=== PATIENT | female | born 1970 | race African-American/Black ===

== ENCOUNTER 2016-12-02 09:09 | Emergency (ER) | payer MEDICAID ==
[~2016-12-02] VITALS: Ht 170.2 cm; Wt 69.0 kg
[2016-12-02] MEDS ORDERED: LORAZEPAM 1MG TABLET PO ONE ×2 (10:15→11:00)
[2016-12-02 11:11] VITALS: BP 99/57
== END 2016-12-02 11:43 | disposition home or self-care (01) ==
LOC: ER 09:17
DX: F41.0 Panic disorder [episodic paroxysmal anxiety] (principal); F32.9 Major depressive disorder, single episode, unspecified; I10 Essential (primary) hypertension
CPT/HCPCS: 81025; 99284

== ENCOUNTER 2016-12-05 14:08 | Emergency (ER) | payer MEDICAID ==
[~2016-12-05] VITALS: Ht 170.2 cm; Wt 85.0 kg
[2016-12-05] MEDS ORDERED: LORAZEPAM 1MG TABLET PO ONE (19:00)
[2016-12-05 19:13] LABS: BASOPHILS % 0.4 % (0.0-2.0); LYMPHOCYTES % 17.6 % (20.0-50.0); MEAN CORPUSCULAR HEMOGLOBIN 29.3 pg (28.0-32.0); MEAN CORPUSCULAR VOLUME 85.7 fL (81.0-99.0); MEAN PLATELET VOLUME 7.2 fl (7.4-10.4); MONOCYTES % 6.2 % (2.0-8.0); NEUTROPHILS % 75.8 % (40.0-76.0); PLATELET 404 x1000/uL (130-400); RED BLOOD CELL COUNT 4.43 mill/uL (4.2-5.4); RED CELL DISTRIBUTION WIDTH 14.8 % (11.6-14.6)
[2016-12-05 19:17] LABS: CLARITY URINE CLEAR (CLEAR); COLOR URINE YELLOW (YELLOW); GLUCOSE URINE NEGATIVE (NEGATIVE); KETONES URINE NEGATIVE (NEGATIVE); LEUKOCYTE ESTERASE URINE TRACE (NEGATIVE); NITRITE URINE NEGATIVE (NEGATIVE); OCCULT BLOOD URINE NEGATIVE (NEGATIVE); PROTEIN URINE NEGATIVE (NEGATIVE); UROBILINOGEN URINE 0.2 E.U./dL (0.2-1.0)
[2016-12-05 19:19] LABS: CHLORIDE 100 mEq/L (98-107)
[2016-12-05 19:21] LABS: CARBON DIOXIDE 28 mEq/L (21-32)
[2016-12-05 19:24] LABS: ETHANOL BLOOD < 10 mg/dL
[2016-12-05 19:25] LABS: HCG SCREEN NEGATIVE
[2016-12-05 19:33] LABS: *AMPHETAMINES SCREEN URINE NEGATIVE (NEGATIVE); *BARBITURATES SCREEN URINE NEGATIVE (NEGATIVE); *BENZODIAZEPINES SCREEN URINE NEGATIVE (NEGATIVE); *COCAINE SCREEN URINE NEGATIVE (NEGATIVE); CANNABINOID URINE SCREEN NEGATIVE (NEGATIVE); METHADONE URINE SCREEN NEGATIVE (NEGATIVE); OPIATES URINE SCREEN NEGATIVE (NEGATIVE); PHENCYCLIDINE URINE SCREEN NEGATIVE (NEGATIVE)
[2016-12-06 12:04] VITALS: BP 121/69
== END 2016-12-06 12:54 | disposition home or self-care (01) ==
LOC: ER 14:16
DX: F41.9 Anxiety disorder, unspecified (principal); R45.851 Suicidal ideations; I10 Essential (primary) hypertension; F32.9 Major depressive disorder, single episode, unspecified; F20.9 Schizophrenia, unspecified
CPT/HCPCS: 36415; 80048; 80305; 80307; 80329; 81001; 84703; 85025; 99284; G0482; Z7610

== ENCOUNTER 2016-12-21 17:43 | Emergency (ER) | payer MEDICAID ==
[~2016-12-21] VITALS: Ht 172.7 cm; Wt 91.0 kg
[2016-12-21 18:33] VITALS: BP 102/65
== END 2016-12-21 21:32 | disposition left against medical advice (07) ==
LOC: ER 17:43
DX: F41.9 Anxiety disorder, unspecified (principal); Z53.21 Procedure and treatment not carried out due to patient leaving prior to being seen by health care provider

== ENCOUNTER 2016-12-22 11:42 | Emergency (ER) | payer MEDICAID ==
[~2016-12-22] VITALS: Ht 170.2 cm; Wt 96.0 kg
[2016-12-22] MEDS ORDERED: ACETAMINOPHEN 325MG TABLET PO ONE (12:15)
[2016-12-22 12:45] LABS: CLARITY URINE CLOUDY (CLEAR); COLOR URINE YELLOW (YELLOW); GLUCOSE URINE 3+ (NEGATIVE); KETONES URINE NEGATIVE (NEGATIVE); LEUKOCYTE ESTERASE URINE 1+ (NEGATIVE); NITRITE URINE NEGATIVE (NEGATIVE); OCCULT BLOOD URINE NEGATIVE (NEGATIVE); PH URINE 5.5 (4.5-8.0); PROTEIN URINE NEGATIVE (NEGATIVE); SPECIFIC GRAVITY URINE 1.022 (1.005-1.030); UROBILINOGEN URINE 0.2 E.U./dL (0.2-1.0)
[2016-12-22 12:50] LABS: PROTHROMBIN TIME 10.9 sec (9.4-11.6)
[2016-12-22 12:54] LABS: BASOPHILS % 0.3 % (0.0-2.0); HEMATOCRIT. 33.6 % (36.0-48.0); MEAN CORPUSCULAR HEMOGLOBIN 30.6 pg (28.0-32.0); MEAN CORPUSCULAR VOLUME 85.3 fL (81.0-99.0); MEAN PLATELET VOLUME 7.6 fl (7.4-10.4); MONOCYTES % 6.4 % (2.0-8.0); NEUTROPHILS % 75.3 % (40.0-76.0); PLATELET 346 x1000/uL (130-400); RED BLOOD CELL COUNT 3.93 mill/uL (4.2-5.4); RED CELL DISTRIBUTION WIDTH 14.3 % (11.6-14.6)
[2016-12-22 13:09] LABS: *AMPHETAMINES SCREEN URINE NEGATIVE (NEGATIVE); *BARBITURATES SCREEN URINE NEGATIVE (NEGATIVE); *BENZODIAZEPINES SCREEN URINE NEGATIVE (NEGATIVE); *COCAINE SCREEN URINE NEGATIVE (NEGATIVE); CANNABINOID URINE SCREEN NEGATIVE (NEGATIVE); METHADONE URINE SCREEN NEGATIVE (NEGATIVE); OPIATES URINE SCREEN NEGATIVE (NEGATIVE); PHENCYCLIDINE URINE SCREEN NEGATIVE (NEGATIVE)
[2016-12-22 13:11] LABS: CARBON DIOXIDE 27 mEq/L (21-32); CHLORIDE 102 mEq/L (98-107); TROPONIN I < 0.02 ng/mL (0.00-0.04)
[2016-12-22 13:51] LABS: HEPATITIS B SURFACE ANTIGEN NEGATIVE
[2016-12-22 14:19] LABS: HEPATITIS B CORE AB IGM NEGATIVE
[2016-12-22 14:21] LABS: HEPATITIS A AB IGM NEGATIVE (NEGATIVE)
[2016-12-22] MEDS ORDERED: SODIUM CHLORIDE 0.9% 1,000 ML IV ONE (15:00)
[2016-12-22] MEDS ORDERED: SULFAMETHOXAZOLE/TRIMETHOPRIM 800/160MG TABLET PO ONE (15:00)
[2016-12-22 17:31] VITALS: BP 110/68
== END 2016-12-22 17:54 | disposition home or self-care (01) ==
LOC: ER 11:43
DX: R06.02 Shortness of breath (principal); N39.0 Urinary tract infection, site not specified; F32.9 Major depressive disorder, single episode, unspecified; N17.0 Acute kidney failure with tubular necrosis; E10.21 Type 1 diabetes mellitus with diabetic nephropathy; E88.09 Other disorders of plasma-protein metabolism, not elsewhere classified; E10.65 Type 1 diabetes mellitus with hyperglycemia; E86.0 Dehydration; F41.9 Anxiety disorder, unspecified; R81 Glycosuria; I10 Essential (primary) hypertension; E03.9 Hypothyroidism, unspecified; F20.9 Schizophrenia, unspecified; Z79.4 Long term (current) use of insulin
CPT/HCPCS: 36415; 71010; 80053; 80305; 81001; 81025; 83036; 83880; 84484; 85025; 85610; 85651; 86705; 86709; 86803; 87086; 87340; 93005; 96360; 96361; 99285; J7030

== ENCOUNTER 2017-01-01 16:19 | Emergency (ER) | payer MEDICAID ==
[~2017-01-01] VITALS: Ht 180.3 cm; Wt 94.0 kg
[2017-01-01 19:45] VITALS: BP 105/57
== END 2017-01-01 20:08 | disposition home or self-care (01) ==
LOC: ER 16:37
DX: F41.9 Anxiety disorder, unspecified (principal); F32.9 Major depressive disorder, single episode, unspecified; E11.9 Type 2 diabetes mellitus without complications; E05.90 Thyrotoxicosis, unspecified without thyrotoxic crisis or storm
CPT/HCPCS: 81025; 99284; Z7610

== ENCOUNTER 2017-01-14 16:40 | Emergency (ER) | payer MEDICAID ==
[~2017-01-14] VITALS: Ht 162.6 cm; Wt 60.0 kg
[2017-01-14 16:42] VITALS: BP 105/68
== END 2017-01-14 17:51 | disposition left against medical advice (07) ==
LOC: ER 16:40
DX: Z53.21 Procedure and treatment not carried out due to patient leaving prior to being seen by health care provider (principal)